=== PATIENT | male | born 1970 | race African-American/Black ===

== ENCOUNTER 2016-12-06 19:43 | Inpatient (IN) | payer OTHER ==
--- NOTE | ~2016-12-06 | DS ---
Unit #: [id number] #: [id number] Patient: NACHO HOFF [id number] [place] [address] [id number] MR#: [id number] NAME: NACHO HOFF ROOM: [facility] Age: 46 Sex: M Admission Date: 12/06/2016 : 1970 Discharge Date: 12/09/2016 Attending Physician: Oziel Clarke M.D. Primary Care Physician: Ector Fermin M.D. DISCHARGE SUMMARY REASON FOR ADMISSION The patient is a 46-year-old male, admitted to the [address] [place] [address] unit with a recent relapse of cocaine use and depressed mood. HOSPITAL COURSE The patient was admitted to the [address] [place] [address] unit and placed on suicide precautions. He was continued on previously prescribed medications including Xarelto, Cozaar, Seroquel, Neurontin, and Celexa. The patient showed rapid improvement in mood and was active within therapeutic milieu. He was agreeable with plan for followup in the chemical dependency intensive outpatient program when discharged from this facility on 12/09/2016 as per his request. FINAL DIAGNOSES Cocaine use disorder, dysthymic disorder, deep vein thrombosis by history, hypertension. DISPOSITION ON DISCHARGE The patient is discharged on the following medications; Celexa 20 mg once daily for depression, Neurontin 800 mg b.i.d. for pain, Seroquel 100 mg at bedtime for mood stabilization, Cozaar 50 mg once daily for hypertension, Xarelto 15 mg b.i.d. for DVT. DISCHARGE INSTRUCTIONS No dietary or physical restrictions were placed on the patient at the time of discharge. FOLLOWUP Followup will take place through the auspices of community mental health resources. PROGNOSIS The patient's prognosis is considered fair. Dictated by... Oziel Clarke M.D. CB/og TD: 12/09/2016 22:14 JOB #: [id number] Unit #: [id number] #: [id number] Patient: NACHO HOFF DISCHARGE SUMMARY X Oziel Clarke MD X DISCHARGE SUMMARY
--- NOTE | ~2016-12-06 | PA ---
Unit #: [id number] #: [id number] Patient: NACHO HOFF [id number] [facility] [address] [place] [address] [id number] I MR#: [id number] NAME: NACHO HOFF ROOM: P201 Age: 46 Sex: M Admission Date: 12/06/2016 : 1970 Date of Assessment: 12/07/2016 Attending Physician: Oziel Clarke M.D. Admitting Physician: Oziel Clarke M.D. Primary Care Physician: Ector Fermin M.D. PSYCHIATRIC ASSESSMENT IDENTIFING INFORMATION The patient is a 46-year-old male admitted voicing positive suicidal ideation following a recent cocaine binge. INFORMANT(S) Chart, patient cannot be aroused for interview. CHIEF COMPLAINT None given HISTORY OF PRESENT ILLNESS The patient is a 46-year-old male last admitted to this facility under the care of Dr. Daugherty in August of 2016. He is readmitted after he had presented at [facility] voicing positive suicidal ideation related to a recent cocaine binge. The patient reports that he "wasn't raised this way" and expressing shame over this episode. During his last hospitalization Dr. Daugherty had prescribed Celexa, Seroquel and Neurontin for the patient. He has been noncompliant with these medications and has likewise been noncompliant with treatment for a DVT with which he was recently diagnosed. When seen today the patient is sleeping soundly and cannot be aroused for interview in spite of multiple efforts on the part of this physician to do so. PAST PSYCHIATRIC HISTORY Reviewed no changes. PAST MEDICAL HISTORY Reviewed no changes. MEDICATIONS None at this time. ALLERGIES None reported. FAMILY HISTORY Reviewed no changes. SOCIAL HISTORY Reviewed no changes. MENTAL STATUS EXAMINATION At this time reveals the patient to be a soundly sleeping Unit #: [id number] #: [id number] Patient: NACHO HOFF male who cannot be aroused despite multiple efforts on the part of this physician to do so. ASSETS AND LIABILITIES ASSETS: To be assessed. LIABILITIES: Lack of resources. DIAGNOSTIC IMPRESSION 1. Cocaine use disorder. 2. Major depressive disorder by history. 3. DVT by history. 4. Hypertension by history. PSYCHIATRIC PLAN/TREATMENT GOALS The patient remains hospitalized for safety and stabilization. I will restart medications previously prescribed by Dr. Daugherty and we will ask for medical consult related to the patient's reported history of DVT. Suicidal precautions are in place. ESTIMATED LENGTH OF STAY Three to five days. Dictated by... Oziel Clarke M.D. JOSUÉ/cassie TD: 12/08/2016 01:08 JOB #: [id number] PSYCHIATRIC ASSESSMENT X Oziel Clarke MD X PSYCHIATRIC ASSESSMENT
--- NOTE | ~2016-12-06 | PN ---
Unit #: [id number] #: [id number] Patient: NACHO HOFF [id number] [facility] [address] [place] [address] [id number] I MR#: [id number] NAME: NACHO HOFF ROOM: P201 Age: 46 Sex: M Admission Date: 12/06/2016 : 1970 Attending Physician: Oziel Clarke M.D. Admitting Physician: Oziel Clarke M.D. Primary Care Physician: Home Horner PROGRESS NOTES DATE 12/08/2016 DISCUSSION The patient is in a bit brighter spirits today. He attributes his recent relapse of cocaine use to "being around the wrong people" and is reporting reduction of suicidal ideation when seen today. Should he sustain progress discharge could place as early as tomorrow. Dictated by... Oziel Clarke M.D. CB/cassie TD: 12/08/2016 20:07 JOB #: [id number] SHAHRAM PROGRESS NOTES X Oziel Clarke MD PROGRESS NOTE
--- NOTE | ~2016-12-06 | CO ---
Unit #: [id number] #: [id number] Patient: NACHO HOFF [id number] [facility] [address] [place] [address] [id number] I MR#: [id number] NAME: NACHO HOFF ROOM: [facility] Age: 46 Sex: M Admission Date: 12/06/2016 : 1970 Attending Physician: Oziel Clarke M.D. Primary Care Physician: Ector Fermin M.D. Consultation Date: 12/07/2016 CONSULTATION REPORT ORDERING PROVIDER Dr. Clarke. REASON FOR CONSULTATION DVT management. SUBJECTIVE The patient reports that approximately 1 month ago he was diagnosed with DVT in his right leg. These claims were substantiated with records noted from [facility] just prior to [facility]. It reports that he had been on Lovenox injections and was bridged to Coumadin at one point, however, he has been off the Coumadin for approximately 5 days. INR at the hospital was noted to be 0.8, this was just prior to admission. OBJECTIVE The patient's right calf is slightly edematous and painful to palpation. INR was not drawn on admission. ASSESSMENT Deep venous thrombosis of unknown duration with noncompliance of Coumadin therapy. PLAN Plan is to start the patient on Xarelto. We will start like it is a new start at 15 mg p.o. b.i.d. for 21 days and then the patient will have to follow up with his PCP for continuation of 20 mg tablets daily. Dictated by... Kristel Murray A.P.R.N. for Home Mariee/og TD: 12/07/2016 20:56 JOB #: [id number] Unit #: [id number] #: [id number] Patient: NACHO HOFF CONSULTATION REPORT X KRISTEL MURRAY APRN X CONSULTATION REPORT
--- NOTE | ~2016-12-06 | HP ---
Unit #: [id number] #: [id number] Patient: NACHO HOFF [id number] [place] [address] [id number] I MR#: [id number] NAME: NACHO HOFF ROOM: P201 Age: 46 Sex: M Admission Date: 12/06/2016 : 1970 Attending Physician: Oziel Clarke M.D. Admitting Physician: Oziel Clarke M.D. Primary Care Physician: Ector Fermin M.D. HISTORY AND PHYSICAL HISTORY OF PRESENT ILLNESS The patient is a 46-year-old male admitted to [facility] on 12/06/2016 for suicidal ideations and cocaine abuse. PAST MEDICAL HISTORY 1. Recent DVT of the right leg. 2. Obesity. 3. RSD. 4. Asthma. 5. Hypertension. 6. Nicotine dependence. 7. Drug abuse. PAST SURGICAL HISTORY The patient denies. SOCIAL HISTORY The patient smokes one pack of cigarettes daily. Tox screen was positive for cocaine and marijuana. FAMILY HISTORY Noncontributory. ALLERGIES No known drug allergies. CURRENT MEDICATIONS The patient is not on any home medications. REVIEW OF SYSTEMS CONSTITUTIONAL: No fever or chills. HEENT: Denies any sore throat, ear pain or runny nose. CARDIOVASCULAR: Denies chest pain, irregular heart rhythm or palpitations. CHEST: Denies shortness of breath or cough. No hemoptysis. GASTROINTESTINAL: Denies nausea, vomiting, diarrhea or chronic constipation. ENDOCRINE: Denies history of increased thirst or urination. No recent significant weight loss or gain. GENITOURINARY: Denies dysuria, frequency, or hematuria. SKIN: Denies any rashes. HEMATOLOGIC: Denies history of increased bleeding or bruising. MUSCULOSKELETAL: Denies any hot, swollen joints. No generalized muscle pain. NEUROLOGIC: Denies problems with vision or speech. No frequent, severe Unit #: [id number] #: [id number] Patient: NACHO HOFF headaches. No numbness, tingling or weakness in any extremities. Denies loss of bladder or bowel control. PHYSICAL EXAMINATION GENERAL: The patient is awake, alert and oriented, in no acute distress. VITAL SIGNS: Temperature 97.8, heart rate 85, respiratory rate 16, blood pressure 154/96. Height 6'6". WEIGHT: 280 pounds. SKIN: Warm and dry without rash or lesion. HEENT: Normocephalic. TMs not viewed. Oral and nasal passages clear. Conjunctivae clear. PERRLA. EOMs intact. NECK: Supple without lymphadenopathy or thyromegaly. HEART: Regular rate and rhythm without murmur. LUNGS: Clear. ABDOMEN: Soft, nontender. : Not done. EXTREMITIES: No evidence of cyanosis, clubbing or edema. Moves all without focal deficit. NEUROLOGICAL: Grossly within normal limits. Cranial Nerves: II: Visual noble are intact. III, IV AND : Extraocular movements are intact. Pupils are equal, round and reactive to light. V: Facial sensation is grossly normal. VII: Facial movements and expression are normal. VIII: Auditory acuity grossly intact. IX, X: Uvula is midline. Phonation is normal. XI: Patient shrugs shoulders and turns head normally. XII: Tongue protrudes in the midline. Sensory and Motor Function: Sensory and motor sensation is grossly normal. Motor: moves all extremities well. ASSESSMENT 1. Psychiatric admission. 2. Drug abuse. 3. Nicotine dependence. 4. DVT. 5. Obesity. 6. RSD. 7. Asthma. 8. Hypertension. RECOMMENDATIONS Psychiatric: Per psychiatrist. Medical: No contraindications to participating in facility activities. MEDICAL PROGNOSIS Fair. MEDICAL CONDITION Stable. Dictated by... Jarrod Cain/adam TD: 12/08/2016 09:24 JOB #: [id number] Unit #: [id number] #: [id number] Patient: NACHO HOFF HISTORY AND PHYSICAL X BENITO JANE APRN HISTORY AND PHYSICAL
[2016-12-09 09:37] LABS: URINE APPEARANCE CLEAR; URINE BILIRUBIN NEG (NEG); URINE BLOOD NEG (NEG); URINE COLOR YELLOW; URINE GLUCOSE NEG (NEG); URINE KETONE NEG (NEG); URINE LEUKOCYTE ESTERASE NEG (NEG); URINE NITRATE NEG (NEG); URINE PH 7.5 (5-8); URINE PROTEIN NEG (NEG); URINE SPECIFIC GRAVITY 1.012 (1.003-1.035); URINE UROBILINOGEN 0.2 MG/DL (NEG)
== END 2016-12-09 13:37 | disposition hospice, home (50) | DRG 897 ==
LOC: P2S 19:43 → POF 12-07 18:08 → P2S 12-07 18:52
PROVIDERS: Specialist
DX: F14.10 Cocaine abuse, uncomplicated (principal); I82.4Z1 Acute embolism and thrombosis of unspecified deep veins of right distal lower extremity; I10 Essential (primary) hypertension; G90.50 Complex regional pain syndrome I, unspecified; F32.9 Major depressive disorder, single episode, unspecified; Z79.01 Long term (current) use of anticoagulants; F17.210 Nicotine dependence, cigarettes, uncomplicated; E66.9 Obesity, unspecified; F12.10 Cannabis abuse, uncomplicated
CPT/HCPCS: 81003

== ENCOUNTER 2017-01-22 15:04 | Inpatient (IN) | payer OTHER ==
--- NOTE | ~2017-01-22 | PN ---
Unit #: [id number] #: [id number] Patient: NACHO HOFF [id number] [facility] [address] [place] [address] [id number] I MR#: [id number] NAME: NACHO HOFF ROOM: P205 Age: 46 Sex: M Admission Date: 01/22/2017 : 1970 Attending Physician: Oziel Clarke M.D. Admitting Physician: Oziel Clarke M.D. Primary Care Physician: Home Horner PROGRESS NOTES DATE 01/24/2017 DISCUSSION The patient is in slightly brighter spirits today and reports that he has reconciled with his "girl." He is actively participating in the therapeutic milieu and we continue current treatment. Dictated by... Oziel Clarke M.D. CB/dima TD: 01/24/2017 12:55 JOB #: [id number] SHAHRAM PROGRESS NOTES Page 1 of 1 X Oziel Clarke MD X PROGRESS NOTE
--- NOTE | ~2017-01-22 | HP ---
Unit #: [id number] #: [id number] Patient: BRI HOFF [id number] [facility] [address] [place] [address] [id number] I MR#: [id number] NAME: BRI HOFF ROOM: P121 Age: 46 Sex: M Admission Date: 01/22/2017 : 1970 Attending Physician: Oziel Clarke M.D. Admitting Physician: Oziel Clarke M.D. Primary Care Physician: Ector Fermin M.D. HISTORY AND PHYSICAL HISTORY OF PRESENT ILLNESS Bri is a 46-year-old male admitted to [address] [place] [address] with suicidal ideation. [facility] [place] [facility] [place] [facility] [place] [facility] PAST MEDICAL HISTORY 1. Long history of illicit substance abuse to include cocaine, heroin, and methamphetamine. 2. High blood pressure. 3. History of DVT. 4. Obesity. 5. Asthma. PAST SURGICAL HISTORY Nothing reported. ALLERGIES No known drug allergies. SOCIAL HISTORY Smokes one pack per day. Drinks alcohol socially. Admits to a history of poly-illicit substance abuse to include methamphetamine, heroin, and cocaine. FAMILY HISTORY Medically noncontributory. REVIEW OF SYSTEMS CONSTITUTIONAL: No fever or chills. HEENT: Denies any sore throat, ear pain or runny nose. CARDIOVASCULAR: Denies chest pain, irregular heart rhythm or palpitations. CHEST: Denies shortness of breath or cough. No hemoptysis. GASTROINTESTINAL: Denies nausea, vomiting, diarrhea or chronic constipation. ENDOCRINE: Denies history of increased thirst or urination. No recent significant weight loss or gain. GENITOURINARY: Denies dysuria, frequency, or hematuria. SKIN: Denies any rashes. HEMATOLOGIC: Denies history of increased bleeding or bruising. MUSCULOSKELETAL: Denies any hot, swollen joints. No generalized muscle pain. NEUROLOGIC: Denies problems with vision or speech. No frequent, severe headaches. No numbness, tingling or weakness in any extremities. Denies Unit #: [id number] #: [id number] Patient: BRI HOFF loss of bladder or bowel control. CURRENT MEDICATIONS 1. Milk of Magnesia p.r.n. 2. Maalox p.r.n. 3. Tylenol p.r.n. 4. Seroquel 100 mg q.h.s. 5. Amitriptyline 50 mg q.h.s. 6. Xarelto 15 mg b.i.d. 7. Neurontin 400 mg t.i.d. 8. Cozaar 50 mg q. day. 9. Celexa 20 mg q. day. PHYSICAL EXAMINATION GENERAL: Alert, obese. No apparent distress. VITAL SIGNS: Blood pressure 136/84, heart rate 80, respirations 16, and temperature 98.6. WEIGHT: 280. HEIGHT: 6 feet 6 inches. SKIN: Warm and dry without rash or lesion. HEENT: Normocephalic. TMs not viewed. Oral and nasal passages clear. Conjunctivae clear. PERRLA. EOMs intact. NECK: Supple without lymphadenopathy or thyromegaly. HEART: Regular rate and rhythm without murmur. LUNGS: Clear. ABDOMEN: Soft, nontender. : Not done. EXTREMITIES: No evidence of cyanosis, clubbing or edema. Moves all without focal deficit. NEUROLOGICAL: Grossly within normal limits. Cranial Nerves: II: Visual noble are intact. III, IV AND : Extraocular movements are intact. Pupils are equal, round and reactive to light. V: Facial sensation is grossly normal. VII: Facial movements and expression are normal. VIII: Auditory acuity grossly intact. IX, X: Uvula is midline. Phonation is normal. XI: Patient shrugs shoulders and turns head normally. XII: Tongue protrudes in the midline. Sensory and Motor Function: Sensory and motor sensation is grossly normal. Motor: moves all extremities well. Coordination: Gait is normal. Deep Tendon Reflexes: Intact. IMPRESSION Psychiatric admission. RECOMMENDATIONS PSYCHIATRIC: Per psychiatrist. MEDICAL: 1. I see no contraindication to participate in this facility's activities. 2. Continue Xarelto and Cozaar. No need to follow PT/INRs. MEDICAL PROGNOSIS Good. MEDICAL CONDITION Stable. Unit #: [id number] #: [id number] Patient: BRI HOFF Dictated by... Yohana Campos P.A.-C. for Home Mariee TD: 01/23/2017 12:34 JOB #: [id number] HISTORY AND PHYSICAL Page 1 of 1 X Yohana Campos HISTORY AND PHYSICAL
--- NOTE | ~2017-01-22 | PN ---
Unit #: [id number] #: [id number] Patient: NACHO HOFF [id number] [facility] [address] [place] [address] [id number] MR#: [id number] NAME: NACHO HOFF ROOM: [facility] Age: 46 Sex: M Admission Date: 01/22/2017 : 1970 Attending Physician: Oziel Clarke M.D. Admitting Physician: Oziel Clarke M.D. Primary Care Physician: Home Horner PROGRESS NOTES DATE 01/27/2017 DISCUSSION The patient is abed today during group and is gently but firmly confronted regarding his failure to participate within the therapeutic milieu. We expect a.m. discharge with follow up to take place through the auspices of the intensive outpatient program. Dictated by... Oziel Clarke M.D. CB/augusto TD: 01/27/2017 15:42 JOB #: [id number] SHAHRAM PROGRESS NOTES Page 1 of 1 X Oziel Clarke MD X PROGRESS NOTE
--- NOTE | ~2017-01-22 | DS ---
Unit #: [id number] #: [id number] Patient: NACHO HOFF [id number] [place] [address] [id number] I MR#: [id number] NAME: NACHO HOFF ROOM: [facility] Age: 46 Sex: M Admission Date: 01/22/2017 : 1970 Discharge Date: 01/28/2017 Attending Physician: Oziel Clarke M.D. Primary Care Physician: Ector Fermin M.D. DISCHARGE SUMMARY REASON FOR ADMISSION The patient is a 46-year-old female admitted to the hospital with increasing suicidal ideation and cocaine use. HOSPITAL COURSE The patient was admitted to the [facility] and placed on suicide precautions. He was restarted on previously prescribed psychotropic medications, and suicide precautions were ordered. The patient's stay in the hospital was characterized by poor participation in the therapeutic milieu at least initially. However, by 01/28 the patient was requesting discharge. He did in fact attend virtually no programming during his brief stay in the hospital indicating less than optimal investment in treatment. FINAL DIAGNOSES 1. Cocaine use disorder. 2. Dysthymic disorder. 3. History of DVT. 4. Hypertension. DISPOSITION ON DISCHARGE The patient was discharged on the following medications: 1. Celexa 20 mg daily for depression. 2. Neurontin 400 mg 3 times daily with chronic pain. 3. Cozaar 50 mg once daily for hypertension. 4. Elavil 50 mg at h.s. p.r.n. insomnia. 5. Seroquel 100 mg at bedtime for mood stabilization. 6. Xarelto 50 mg twice daily for DVT. DIET AND ACTIVITY No dietary or physical restrictions placed on the patient at the time of discharge. FOLLOWUP Followup will take place in the chemical dependence intensive outpatient program by this physician. Doubts that the patient will comply with this recommended followup given his lack of investment in treatment. PROGNOSIS Considered guarded. Dictated by... Oziel Clarke M.D. Unit #: [id number] #: [id number] Patient: NACHO HOFF JOSUÉ/naylag TD: 01/29/2017 07:56 JOB #: [id number] DISCHARGE SUMMARY Page 1 of 1 X Oziel Calrke MD DISCHARGE SUMMARY
--- NOTE | ~2017-01-22 | CO ---
Unit #: [id number] #: [id number] Patient: BRI HOFF [id number] [place] [address] [id number] I MR#: [id number] NAME: BRI HOFF ROOM: P205 Age: 46 Sex: M Admission Date: 01/22/2017 : 1970 Attending Physician: Oziel Clarke M.D. Primary Care Physician: Ector Fermin M.D. Consultation Date: 01/24/2017 CONSULTATION REPORT SUBJECTIVE Bri is a 46-year-old with history of DVT. He is admitted on Xarelto 15 mg p.o. b.i.d. PLAN Plan will be to continue Xarelto 15 mg p.o. b.i.d. x7 days and then change to 20 mg p.o. daily. This was outlined and discussed under his admission H and P dated 01/23/2017. Dictated by... Guanaco ValenciaATomy. for Home Mariee/og TD: 01/24/2017 11:51 JOB #: [id number] CONSULTATION REPORT Page 1 of 1 X Yohana Campos CONSULTATION REPORT
--- NOTE | ~2017-01-22 | PN ---
Unit #: [id number] #: [id number] Patient: NACHO HOFF [id number] [facility] [address] [place] [address] [id number] MR#: [id number] NAME: NACHO HOFF ROOM: P205 Age: 46 Sex: M Admission Date: 01/22/2017 : 1970 Attending Physician: Oziel Clarke M.D. Admitting Physician: Oziel Clarke M.D. Primary Care Physician: Home Horner PROGRESS NOTES DATE 01/25/2017 DISCUSSION The patient offers no new complaints today. Staff reports that he has been active in the therapeutic milieu. His detox continues uneventfully. Should he sustain progress, discharge to take place in early week. Dictated by... Oziel Clarke M.D. CB/aury TD: 01/25/2017 15:29 JOB #: [id number] SHAHRAM PROGRESS NOTES Page 1 of 1 X Oziel Clarke MD X PROGRESS NOTE
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
--- NOTE | ~2017-01-22 | PN ---
Unit #: [id number] #: [id number] Patient: NACHO HOFF [id number] [facility] [address] [place] [address] [id number] MR#: [id number] NAME: NACHO HOFF ROOM: [facility] Age: 46 Sex: M Admission Date: 01/22/2017 : 1970 Attending Physician: Oziel Clarke M.D. Admitting Physician: Oziel Clarke M.D. Primary Care Physician: Home Horner PROGRESS NOTES DATE 01/26/2017 DISCUSSION The patient is abed today but has been participating within the therapeutic milieu. He is a bit brighter but is continuing to report some concerns regarding suicidal thinking. I have spoken to the patient today regarding realistic expectations within patient care, he is expressing interest in chemical dependence intensive outpatient treatment upon discharge from the hospital. Dictated by... Oziel Clarke M.D. CB/truong TD: 01/26/2017 13:24 JOB #: [id number] SHAHRAM PROGRESS NOTES Page 1 of 1 X Oziel Clarke MD X PROGRESS NOTE
[2017-01-25 11:14] LABS: URINE APPEARANCE CLEAR; URINE BILIRUBIN NEG (NEG); URINE BLOOD NEG (NEG); URINE COLOR YELLOW; URINE GLUCOSE NEG (NEG); URINE KETONE NEG (NEG); URINE LEUKOCYTE ESTERASE NEG (NEG); URINE NITRATE NEG (NEG); URINE PROTEIN NEG (NEG); URINE SPECIFIC GRAVITY 1.008 (1.003-1.035); URINE UROBILINOGEN 0.2 MG/DL (NEG)
[2017-01-25 11:48] LABS: AMPHETAMINE NEG (NEG); BARBITURATES NEG (NEG); BENZODIAZEPINES NEG (NEG); COCAINE NEG (NEG); MARIJUANA NEG (NEG); OPIATES NEG (NEG); TRICYCLIC ANTIDEPRESSANTS POS (NEG); U METHADONE NEG (NEG)
== END 2017-01-28 13:20 | DRG 897 ==
LOC: P2S 15:04 → P1S 15:25 → P2S 01-23 17:22
PROVIDERS: Specialist
PROC: HZ2ZZZZ Detoxification Services for Substance Abuse Treatment (ICD-10-PCS; principal; 2017-01-22)
DX: F14.10 Cocaine abuse, uncomplicated (principal); F11.10 Opioid abuse, uncomplicated; R45.851 Suicidal ideations; F34.1 Dysthymic disorder; I10 Essential (primary) hypertension; Z86.718 Personal history of other venous thrombosis and embolism; F17.210 Nicotine dependence, cigarettes, uncomplicated; F15.10 Other stimulant abuse, uncomplicated; Z79.01 Long term (current) use of anticoagulants
CPT/HCPCS: 80307; 81003

== ENCOUNTER 2017-04-06 22:23 | Inpatient (IN) | payer OTHER ==
--- NOTE | ~2017-04-06 | PN ---
Unit #: [id number] #: [id number] Patient: NACHO HOFF [id number] [facility] [address] [place] [address] [id number] MR#: [id number] NAME: NACHO HOFF ROOM: P204 Age: 46 Sex: M Admission Date: 04/06/2017 : 1970 Attending Physician: Oziel Clarke M.D. Admitting Physician: Oziel Clarke M.D. Primary Care Physician: Home Horner PROGRESS NOTES DATE 04/08/2017 DISCUSSION The patient when queried today states that he feels "awful" and claims to be having auditory hallucinations. I have gently but firmly confronted the patient regarding the fact that his ongoing methamphetamine abuse is responsible for his claims of auditory hallucinations. I will add p.r.n. haloperidol to address any such symptoms. The patient has as always been completely noncompliant with any participation within the therapeutic milieu and has gone so far as to refuse to comply with simple requests from staff. Dictated by... Oziel Clarke M.D. CB/augusto TD: 04/08/2017 16:06 JOB #: [id number] SHAHRAM TUBBS NOTES Page 1 of 1 X Oziel Clarke MD PROGRESS NOTE
--- NOTE | ~2017-04-06 | PA ---
Unit #: [id number] #: [id number] Patient: NACHO HOFF [id number] [facility] [address] [place] [address] [id number] MR#: [id number] NAME: NACHO HOFF ROOM: P209 Age: 46 Sex: M Admission Date: 04/06/2017 : 1970 Date of Assessment: 04/07/2017 Attending Physician: Oziel Clarke M.D. Admitting Physician: Oziel Clarke M.D. Primary Care Physician: Ector Fermin M.D. PSYCHIATRIC ASSESSMENT IDENTIFYING INFORMATION The patient is a 46-year-old male, admitted to the [address] [place] [address] unit reporting positive suicidal ideation and abuse of heroin, crack cocaine, and methamphetamine. INFORMANT(S) Chart, patient cannot be roused for interview. CHIEF COMPLAINT None given. HISTORY OF PRESENT ILLNESS The patient is a 46-year-old male, last discharged from this facility in January of this year. The patient returned yesterday reporting positive suicidal ideation and abuse of heroin, methamphetamine, and cocaine. In the access center the patient had removed his pants. The patient reported positive suicidal ideation reporting a male voice telling him to harm himself. During today's interview, the patient covers his head with a blanket and declines to be roused for interview. For a more complete history of present illness please refer to previously dictated notes. PAST PSYCHIATRIC HISTORY Reviewed and no changes. PAST MEDICAL HISTORY Reviewed and no changes. MEDICATIONS 1. Celexa 2. Elavil 3. Seroquel 4. Gabapentin 5. Cozaar 6. Xarelto ALLERGIES None. FAMILY HISTORY Reviewed and no changes. SOCIAL HISTORY Unit #: [id number] #: [id number] Patient: NACHO HOFF Reviewed and no changes. MENTAL STATUS EXAM At this time, reveals the patient to be a soundly sleeping male appearing his stated age. He covers his head with a blanket when this physician attempts to interview him and falls asleep shortly after initiation of the interview. ASSETS To be assessed. LIABILITIES Lack of resources, ongoing substance use. DIAGNOSTIC IMPRESSION Edgarton I: Cocaine use disorder. Methamphetamine use disorder. Opioid use disorder. Psychotic disorder, unspecified. Mood disorder, unspecified. [place]garton II: [place]garton III: Hypertension. History of DVT. TREATMENT PLAN The patient remains hospitalized for safety and stabilization, we will continue Cozaar and Xarelto but will discontinue Celexa, Elavil, Seroquel, and gabapentin as the patient has been noncompliant with these medications and continues to abuse psychoactive substances outside the hospital. The patient will participate in appropriate lundy and milieu activities with an estimated length of stay in the hospital of [id number] days. ESTIMATED LENGTH OF STAY [id number] days. Dictated by... Oziel Clarke M.D. JOSUÉ/dmia TD: 04/07/2017 12:45 JOB #: [id number] PSYCHIATRIC ASSESSMENT Page 1 of 1 X Oziel Clarke MD X PSYCHIATRIC ASSESSMENT
--- NOTE | ~2017-04-06 | PN ---
Unit #: [id number] #: [id number] Patient: NACHO HOFF [id number] [facility] [address] [place] [address] [id number] MR#: [id number] NAME: NACHO HOFF ROOM: P204 Age: 46 Sex: M Admission Date: 04/06/2017 : 1970 Attending Physician: Oziel Clarke M.D. Admitting Physician: Oziel Clarke M.D. Primary Care Physician: Home Horner PROGRESS NOTES DATE 04/09/2017 DISCUSSION The patient remains seclusive to room with little participations in therapeutic milieu. The staff reports he has been a bit more compliant with care. He continues to complain of auditory hallucinations and continues to say that he is "going through it." He is voicing ongoing suicidal ideation. We continue current treatment and I have encouraged the patient to increase his participation within the therapeutic milieu. Dictated by... Oziel Clarke M.D. CB/augusto TD: 04/09/2017 15:45 JOB #: [id number] SHAHRAM PROGRESS NOTES Page 1 of 1 X Oziel Clarke MD X PROGRESS NOTE
--- NOTE | ~2017-04-06 | DS ---
Unit #: [id number] #: [id number] Patient: NACHO HOFF [id number] [facility] [address] [place] [address] [id number] MR#: [id number] NAME: NACHO HOFF ROOM: [facility] Age: 46 Sex: M Admission Date: 04/06/2017 : 1970 Discharge Date: 04/10/2017 Attending Physician: Oziel Clarke M.D. Primary Care Physician: Ector Fermin M.D. DISCHARGE SUMMARY REASON FOR ADMISSION The patient is a 46-year-old male, admitted to the [facility] unit with recurrent abuse of cocaine and methamphetamine. HOSPITAL COURSE The patient was admitted to the [address] [place] [address] unit and placed on routine detoxification protocol for opioids. He did complain of some ongoing auditory hallucinations. His participation within therapeutic milieu was as always extremely poor and his cooperation with staff was likewise poor. On 04/10/2017, the patient stated that he had been accepted for treatment at [facility] when informed by this physician that he had only been referred to that facility, not except that he continued to insist on discharge which was ordered. By that time, the patient's methamphetamine-induced psychotic symptoms had resolved. He denied any psychotic symptoms or suicidal ideation. FINAL DIAGNOSES Methamphetamine use disorder; cocaine use disorder; opioid use disorder; substance-induced psychotic disorder; morbid obesity. DISPOSITION ON DISCHARGE The patient is discharged on no psychotropic or other medications. FOLLOWUP Followup will take place through the auspices of community mental health and chemical dependency treatment resources. PROGNOSIS The patient's prognosis remains guarded. Dictated by... Oziel Clarke M.D. JOSUÉ/og TD: 04/12/2017 13:25 JOB #: [id number] Unit #: [id number] #: [id number] Patient: NACHO HOFF DISCHARGE SUMMARY Page 1 of 1 X Oziel Clarke MD X DISCHARGE SUMMARY
--- NOTE | ~2017-04-06 | HP ---
Unit #: [id number] #: [id number] Patient: BRI HOFF [id number] [facility] [address] [place] [address] [id number] I MR#: [id number] NAME: BRI HOFF ROOM: P209 Age: 46 Sex: M Admission Date: 04/06/2017 : 1970 Attending Physician: Oziel Clarke M.D. Admitting Physician: Oziel Clarke M.D. Primary Care Physician: Ector Fermin M.D. HISTORY AND PHYSICAL HISTORY OF PRESENT ILLNESS Bri is a 46 year old, admitted to [address] [place] [address] with depression and verbalizing wanting to hurt himself. He has had other admissions to this facility for the same. PAST MEDICAL HISTORY 1. Long history of illicit substance abuse to include cocaine, heroin, and methamphetamine. 2. High blood pressure. 3. History of DVT. 4. Obesity. 5. Asthma. PAST SURGICAL HISTORY Nothing reported. ALLERGIES No known drug allergies. SOCIAL HISTORY He smokes one pack per day, drinks alcohol socially, admits to a history of poly-illicit substance abuse. FAMILY HISTORY Medically noncontributory. REVIEW OF SYSTEMS CONSTITUTIONAL: No fever or chills. HEENT: Denies any sore throat, ear pain or runny nose. CARDIOVASCULAR: Denies chest pain, irregular heart rhythm or palpitations. CHEST: Denies shortness of breath or cough. No hemoptysis. GASTROINTESTINAL: Denies nausea, vomiting, diarrhea or chronic constipation. ENDOCRINE: Denies history of increased thirst or urination. No recent significant weight loss or gain. GENITOURINARY: Denies dysuria, frequency, or hematuria. SKIN: Denies any rashes. HEMATOLOGIC: Denies history of increased bleeding or bruising. MUSCULOSKELETAL: Denies any hot, swollen joints. No generalized muscle pain. NEUROLOGIC: Denies problems with vision or speech. No frequent, severe headaches. No numbness, tingling or weakness in any extremities. Denies loss of bladder or bowel control. Unit #: [id number] #: [id number] Patient: BRI HOFF CURRENT MEDICATIONS 1. Cozaar 50 mg daily 2. Zyprexa Zydis 10 mg q.8h p.r.n. 3. Milk of magnesia p.r.n. 4. Maalox p.r.n. 5. Tylenol p.r.n. 6. Xarelto 20 mg p.o. daily PHYSICAL EXAMINATION GENERAL: Alert, well-nourished, no apparent distress. VITAL SIGNS: Blood pressure 142/8, heart rate 80, respirations 16, temperature 98.6. WEIGHT: 298 pounds. HEIGHT: 6 feet 5 inches. SKIN: Warm and dry without rash or lesion. HEENT: Normocephalic. TMs not viewed. Oral and nasal passages clear. Conjunctivae clear. PERRLA. EOMs intact. NECK: Supple without lymphadenopathy or thyromegaly. HEART: Regular rate and rhythm without murmur. LUNGS: Clear. ABDOMEN: Soft, nontender. : Not done. EXTREMITIES: No evidence of cyanosis, clubbing or edema. Moves all without focal deficit. NEUROLOGICAL: Grossly within normal limits. Cranial Nerves: II: Visual noble are intact. III, IV AND : Extraocular movements are intact. Pupils are equal, round and reactive to light. V: Facial sensation is grossly normal. VII: Facial movements and expression are normal. VIII: Auditory acuity grossly intact. IX, X: Uvula is midline. Phonation is normal. XI: Patient shrugs shoulders and turns head normally. XII: Tongue protrudes in the midline. Sensory and Motor Function: Sensory and motor sensation is grossly normal. Motor: moves all extremities well. Coordination: Gait is normal. Deep Tendon Reflexes: Intact. IMPRESSION Psychiatric admission. RECOMMENDATIONS Psychiatric, per psychiatrist. MEDICAL 1. I see no contraindications to participating in facility's activities. 2. Continue Xarelto 20 mg daily. MEDICAL PROGNOSIS Good. MEDICAL CONDITION Stable. Dictated by... Yohana Campos P.A.-C. for Anupam Magallanes M.D. Unit #: [id number] #: [id number] Patient: BRI HOFF MORGAN/dima TD: 04/07/2017 16:10 JOB #: [id number] HISTORY AND PHYSICAL Page 1 of 1 X Yohana Campos X HISTORY AND PHYSICAL
[2017-04-09 10:02] LABS: URINE APPEARANCE CLEAR; URINE BILIRUBIN NEG (NEG); URINE BLOOD NEG (NEG); URINE COLOR YELLOW; URINE GLUCOSE NEG (NEG); URINE KETONE NEG (NEG); URINE LEUKOCYTE ESTERASE NEG (NEG); URINE NITRATE NEG (NEG); URINE PROTEIN NEG (NEG); URINE UROBILINOGEN 0.2 MG/DL (NEG)
[2017-04-09 12:49] LABS: AMPHETAMINE NEG (NEG); BARBITURATES NEG (NEG); BENZODIAZEPINES NEG (NEG); COCAINE POS (NEG); MARIJUANA POS (NEG); OPIATES NEG (NEG); TRICYCLIC ANTIDEPRESSANTS NEG (NEG); U METHADONE NEG (NEG)
== END 2017-04-10 15:35 | disposition home or self-care (01) | DRG 897 ==
LOC: P2S 23:07
PROVIDERS: Specialist
DX: F14.10 Cocaine abuse, uncomplicated (principal); F11.10 Opioid abuse, uncomplicated; R45.851 Suicidal ideations; F15.159 Other stimulant abuse with stimulant-induced psychotic disorder, unspecified; F39 Unspecified mood [affective] disorder; I10 Essential (primary) hypertension; F17.210 Nicotine dependence, cigarettes, uncomplicated; E66.01 Morbid (severe) obesity due to excess calories
CPT/HCPCS: 80307; 81003